=== PATIENT | male | born 1960 | race Caucasian/White ===

== ENCOUNTER 2016-10-25 08:52 | Day surgery (SDC) | payer OTHER ==
[~2016-10-25] VITALS: Ht 172.7 cm; Wt 81.7 kg
[~2016-10-25 08:52] MED LIST: FOLI1TAB18 PO; FURO-129 PO; LAC10 PO; LORA1TAB PO; Lactated Ringer's 1,000 ML IV ONE; MAGN400T39 PO; MULT-666 PO; POTA-62 PO
[2016-10-25] MEDS ORDERED: Propofol 10,000 mCg/mL 20 mL Inj ONE (08:53)
[2016-10-25] MEDS ORDERED: Glycopyrrolate 0.2 MG/ML 1mL Inj ONE (08:53)
[2016-10-25] MEDS ORDERED: Ketamine 10 mg/mL 20 mL Inj ONE (08:53)
[2016-10-25 09:04] VITALS: BP 170/107; PULSE 72; RESP 16; O2SAT 95
--- NOTE | 2016-10-25 09:36 | PCM.HPANE ---
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 Ht/WT & BMI Height (Feet): 5 Height (Inches): 8 Weight (Kilograms): 81.65 Body Mass Index 27.00 Allergies Coded Allergies: No Known Drug Allergies (Verified Allergy, Unknown, 10/25/16) Past Anesthesia History Anesthesia History: Denies:: Abnormal Airway, Anesthesia Reactions, Difficult Intubation, Fam Anesthesia Reaction, Fam Malignant Hypertherm, Malignant Hyperthermia Diabetes History Hx Diabetes?: No MRSA MRSA: No Medications Hypertension Medication: No Home Meds Incl Beta Santiago: No Reported Medications Folic Acid 1 Mg Tablet1 Mg PO DAILY 30 Days 09/08/16 Furosemide (Lasix)20 Mg [id number] Mg PO DAILY 30 Days Ref 0 09/08/16 Multivitamin (Once Daily)1 Each Tablet1 Each PO DAILY 09/08/16 Potassium Chloride ER 20 Meq Tablet.er20 Meq PO DAILY Ref 0 TAKE WITH FOOD 09/08/16 Magnesium Oxide (Magnesium)400 Mg [id number] Mg PO DAILY 09/08/16 Lactulose 10 Gm/15 Ml [id number] Gm PO 09/08/16 Discontinued Reported Medications Lorazepam 1 Mg Tablet1 Mg PO TID PRN For Anxiety Ref 0 10/21/16 History History of ENT Problems?: No HEENT History: Denies:: Abnormal Airway Difficult Intubation Dysphagia Hearing Problem Denture Type: None Teeth Condition: Tooth Decay Hx of Heart Problems?: No Cardiovascular History: Positive for:: Edema Denies:: AICD Atrial Fibrillation Chest Pain Congestive Heart Failure Coronary Artery Disease Hypertension Pacemaker Valvular Heart Disease Other Cardiac History: 2+ BLE pitting edema; FH of [place] Hx of Respiratory Problem?: No Respiratory History: Denies:: Asthma COPD Cough Hemoptysis Pneumonia Tuberculosis Hx Neurologic Problems?: No Neurological History: Denies:: CVA Dementia (SLOW MENTATION, ) Seizures TIA Other Neurological Pertinent: denies DT's, h/o ETOH abuse; "shuffling gait per RN - not observed by me" Hx of GI Problems?: Yes Gastrointestinal History: Positive for:: Cirrhosis Liver Disease Rectal Bleeding Denies:: Gastroesphageal Reflux Gastrointestinal Bleeding Hx of Problems?: No HX of Peritoneal Dialysis: No Male Hx: Denies:: Prostate Problems Skin History: Positive for:: History Skin Disorders? Other Skin Pertinent History: ECZEMA; HEALING SCABS FROM DOG Hx Musculoskeletal Problems?: No Musculoskeletal History: Denies:: Fibromyalgia Joint Replacement Hx of Psycho/Social Problems?: Yes Psycho Social History: Denies:: Anxiety Hx Depression Other Psych Pertinent History: ETOH abuse - denies DT's Hx Surgeries?: No Hx Any Other Health Problems?: No Other History: Positive for:: Hospitalization Denies:: Cancer Thyroid Disease History Blood Transfusions: Positive for:: Accept Blood Products? Denies:: Blood Transfusions Hx Diabetes: No Occupation: Retired [employer] Alcohol Use: Yes (some relapses recently ) Alcoholic Drinks Per Day: 3 beers each "outing"Hx Substance Use: No Smoking Status: Never Smoker Have You Smoked inLast 12 mo: No Stop/Bang Treated for Sleep Apnea?: No Do You Have a CPAP Machine?: No S-Snoring: Do You Snore Loudly: No T-Tired: feel tired, fatigued: No O-Obsered: Observed not breath: No P-Blood Pressure: treated: No B- Body Mass Index > 35 kg/m2: No A- Age over 50: Yes N- Neck Large Circumference: No G- Gender Male: Yes NEPTALI Total Score: 2 NEPTALI Risk Assessment: Low Risk, <3 Yes Risk Assessment Category Category 1A: Patient has history of documented sleep apnea, and HAS NOT received any narcotic, sedative or anesthesia administration during this stay. Category 1B: Patient has history of documented sleep apnea, and HAS received any narcotic , sedative or anesthesia administration during this stay Category 2: Patient has SUSPECTED Obstructive Sleep Apnea, and HAS received any narcotic , sedative or anesthesia administration during this stay. Category 3: Patient has SUSPECTED Obstructive Sleep Apnea and HAS NOT received narcotic, sedative or anesthesia administration during this stay. Category 4: Outpatient in Procedural Areas with known sleep apnea or who screen positive for High Risk via the STOP/BANG questionnaire. Exam Exam Vital Signs Vital Signs Date Time Temp Pulse Resp B/P Pulse Ox O2 Delivery O2 Flow Rate FiO2 10/25/16 09:04 36.3 72 16 170/107 95 Room Air General Appearance: Alert, Oriented X3, Cooperative, No Acute Distress HEENT/AIRWAY: MP 2, Neck Movement (FROM), Mouth Opening (>3), Other (tmd>3) Lungs: Normal Air Movement Heart: Exam Unremarkable, Regular Rate/Rhythm, Normal S1, Normal S2, No Murmurs /Rubs/Gallops Meds/Labs/Diagnostics Admission Meds Current Medications Lactated Ringer's (Lr) 1,000 ml @ 10 mls/hr Q24H ONCE IV Last administered on 10/25/16 09:25; Start 10/25/16 at 06:00; Stop 10/26/16 at 05:59 Plan Impression Patient chart reviewed, patient interviewed and anesthestic plan with risks, benefits, and alternatives discussed, and informed consent obtained. NPO per Anesth. Guidelines: Yes ASA Physical Status: ASA3 Severe Disease Anesthetic Plan: TIVA Bene/Risks/Altern/Consents: Yes HP Complete Prior to Induction: Yes Michael Spence MD Oct 25, 2016 09:35
[2016-10-25 10:00] VITALS: BP 157/95; PULSE 76; O2SAT 97
[2016-10-25 10:10] VITALS: BP 157/95; PULSE 71; RESP 16; O2SAT 97
--- NOTE | 2016-10-25 10:11 | ENDO ---
[address] [address] ENDOSCOPY PROCEDURE PATIENT: KRISTEN PONCE : 1960 MR#: [id number] ADMIT: 10/25/2016 JOB ID: [id number] TYPE OF OPERATION: Esophagogastroduodenoscopy with biopsy, and colonoscopy. PREOPERATIVE DIAGNOSIS(ES): Cirrhosis and colorectal cancer screening. POSTOPERATIVE DIAGNOSIS(ES): 1. Mild nonerosive gastritis. 2. Solid stool seen throughout the entire colon. ANESTHESIA: Monitored anesthesia care. COMPLICATIONS: None. ESTIMATED BLOOD LOSS: Minimal. DESCRIPTION OF PROCEDURE: After risks and benefits were explained to the patient, informed consent was obtained. After anesthesia administered, upper endoscope was inserted in mouth into the esophagus, stomach, second portion of duodenum. Mucosa carefully examined. After procedure was done, the scope withdrawn and the procedure terminated. Colonoscope was inserted from the rectum to the sigmoid colon. Mucosa carefully examined. Prep of the patient was poor and solid stool was seen throughout. The procedure was then aborted. FINDINGS: Upon inspection of the esophagus, the esophagus was normal without masses, ulcers, or lesions. Z-line located 40 cm from the incisors. No evidence of esophageal varices seen. Upon entering the stomach, there was mild nonerosive gastritis that was seen. No evidence of portal hypertensive or gastropathy was seen. No ulcers or masses were seen. Retroflexion was normal. Duodenal bulb, first and second portion normal. Biopsy taken of the antrum and body of the stomach. Upon inspection of the anus, no masses, hemorrhoids, ulcers, or fissures that were seen throughout the entire examination. There was solid stool that was seen throughout the entire colon. The procedure was then aborted. IMPRESSION: 1. Mild nonerosive gastritis, status post biopsy. 2. Poor prep, with solid stool seen in the colon, the procedure aborted. RECOMMENDATIONS: Await pathology results. Repeat colonoscopy with anesthesia with a two day prep. Follow up in GI clinic as needed.
[2016-10-25 10:20] VITALS: BP 179/100; PULSE 74; RESP 16; O2SAT 96
[2016-10-25 10:30] VITALS: BP 166/99; PULSE 73; RESP 16; O2SAT 98
--- NOTE | 2016-10-25 16:18 | PCM.ANEP1 ---
Post Anesthesia PACU Phase 1 Assessment Date of Service: Oct 25, 2016 Vital Signs Vital Signs Date Time Temp Pulse Resp B/P Pulse Ox O2 Delivery O2 Flow Rate FiO2 10/25/16 10:30 73 16 166/99 98 Room Air 10/25/16 10:20 74 16 179/100 96 Room Air 10/25/16 10:10 71 16 157/95 97 Room Air 10/25/16 10:00 76 157/95 97 Room Air 10/25/16 09:04 36.3 72 16 170/107 95 Room Air Anesthetic Administered: TIVA Level of Alertness: Awake, talking WESLEY's with Equal Strength: Yes Pain: No Pain Scale Score: 0 Nausea or Vomiting: No CV Function & Hydration Stable: Yes Airway Device: none Oxygen Delivery: Nasal Cannula Lungs: Normal Air Movement Summary 10/25/16 10:30 73 16 166/99 98 Room Air PACU Phase 2 Assessment Complications: No Follow up Care: N/A Patient Instructions Provided: N/A Michael Spence MD Oct 25, 2016 16:18
--- NOTE | 2016-10-28 16:51 | PATH ---
SURGICAL PATHOLOGY Attending Physician:Neri Elliott MD CASE STATUS: Signed Out PATIENT NAME: KRISTEN PONCE PID: [id number] : 1960 DATE COLLECTED:10/25/2016 16:22 SPECIMEN: 1: Stomach, Antrum, Biopsy 2: Gastric, Biopsy CLINICAL HISTORY: 1). ANTRUM BIOPSY (RULE OUT H.PYLORI) 2). GASTRIC BODY BIOPSY (RULE OUT H.PYLORI) FINAL DIAGNOSIS: 1.ANTRUM, BIOPSY: GASTRIC ANTRAL MUCOSA WITH CHRONIC GASTRITIS. Negative for Helicobacter organisms by immunohistochemistry. Negative for intestinal metaplasia. Negative for dysplasia and malignancy. 2.GASTRIC BODY, BIOPSY: GASTRIC BODY MUCOSA WITH NO DIAGNOSTIC ABNORMALITY. Negative for Helicobacter organisms. Negative for intestinal metaplasia. Negative for dysplasia and malignancy. ICD10 R10.13 GROSS DESCRIPTION: The specimen is received in two formalin filled containers labeled with the patient's name. 1). The specimen is labeled "antrum" and consists of 2 portions of tissue which aggregate to zero 3 x 0.3 x 0.2 CM. The specimen is entirely submitted in cassette 1A. 2). The specimen is labeled "gastric body" and consists of 2 portions of tissue which aggregate to 0.3 x 0.2 x 0.2 CM. The specimen is entirely submitted in cassette 2A. 10/25/2016DC MICRO DESCRIPTION: 1. An immunohistochemical stain was performed to evaluate for Helicobacter organisms and is negative. A control stain showed appropriate reactivity. This test was developed and its performance characteristics determined by [facility]. It has not been cleared or approved by the [place]. Food and Drug Administration. The FDA has determined that such clearance or approval is not necessary. This test is used for clinical purposes. It should not be regarded as investigational or for research. ICD-9 CODES: CPT CODES: 1: 14617, 74111 2: 20023 Electronically Signed Out Hernán Jiang MD, Ph.D. [facility] Pathology [facility] [address], [place] [address] Technical component performed at [facility], [address], [place], [address]
== END 2016-10-25 23:59 | disposition home or self-care (01) ==
LOC: END 08:52
PROVIDERS: ATTEND Internal Medicine Gastroenterology
PROC: 0DJD8ZZ Inspection of Lower Intestinal Tract, Via Natural or Artificial Opening Endoscopic (ICD-10-PCS; principal; 2016-10-25 09:15)
PROC: 0DB68ZX Excision of Stomach, Via Natural or Artificial Opening Endoscopic, Diagnostic (ICD-10-PCS; 2016-10-25 09:15)
DX: Z12.11 Encounter for screening for malignant neoplasm of colon (principal); Z53.8 Procedure and treatment not carried out for other reasons; K70.30 Alcoholic cirrhosis of liver without ascites; K72.90 Hepatic failure, unspecified without coma; K29.50 Unspecified chronic gastritis without bleeding; F10.29 Alcohol dependence with unspecified alcohol-induced disorder
CPT/HCPCS: 43239; 45378; 88305; 88342; J2250; J2704; J7120